=== PATIENT | female | born 1985 | race Caucasian/White ===

== ENCOUNTER 2022-05-02 08:14 | Outpatient (CLI) | payer BC ==
[2022-05-02] MEDS ORDERED: Magnevist 469MG/ML 20 ML VIAL ONE ×3 (09:42)
== END 2022-05-02 08:15 | disposition home or self-care (01) ==
LOC: MRI 08:14
PROVIDERS: ATTEND Psychiatry & Neurology Neurology
DX: G35 Multiple sclerosis (principal)
CPT/HCPCS: 70553; 72156; 72157; A9579